=== PATIENT | male | born 2000 | race Hispanic/Latino ===

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

== ENCOUNTER 2021-01-11 07:23 | Emergency (ER) | payer OTHER | END 2021-01-11 07:43 | LOC: EDH 07:23 → EEVIPCON 07:23 → EDH 07:43 | DX: Z02.89 Encounter for other administrative examinations (principal); F31.9 Bipolar disorder, unspecified; G47.00 Insomnia, unspecified; Z72.0 Tobacco use ==